=== PATIENT | female | born 1995 | race Caucasian/White ===

== ENCOUNTER 2019-08-22 09:34 | Emergency (ER) | payer OTHER, SELFPAY ==
[2019-08-22 09:43] VITALS: BP 126/79; PULSE 104; RESP 17; TEMP 37.1; O2SAT 99
--- NOTE | 2019-08-22 10:11 | ED.FEVER ---
HPI - Fever General Chief Complaint: Fever <LAYO Pierce Last Filed: 08/22/19 10:20> Stated Complaint: fever/chills <LAYO Pierce Last Filed: 08/22/19 10:20> Time Seen by Provider: 08/22/19 09:36 <Yong Haddad PA-C - Last Filed: 08/22/19 10:20> Source: patient <LAYO Pierce Last Filed: 08/22/19 10:20> Mode of arrival: ambulatory <LAYO Pierce Last Filed: 08/22/19 10:20> Limitations: no limitations <Yong Haddad PA-C - Last Filed: 08/22/19 10:20> History of Present Illness HPI Narrative: Patient is a 24-year-old female who presents with 2 days duration of upper respiratory symptoms noting fever chills body aches congestion cough denying any diarrhea noted a few episodes of emesis. Patient is taken [id number] medications with minimal improvement <LAYO Pierce Last Filed: 08/22/19 10:20> Related Data Allergies/Adverse Reactions: Allergies Allergy/AdvReac Type Severity Reaction Status Date / Time No Known Allergies Allergy Verified 08/22/19 09:49 <LAYO Pierce Last Filed: 08/22/19 10:20> Review of Systems Review of Systems: All systems reviewed & are unremarkable except as noted in HPI and below <Yong Haddad PA-C - Last Filed: 08/22/19 10:20> PMFSH Social History Social History: Social History Smoking status: Never smoker Alcohol intake: never Gender identity (if verbalized by the patient): Female <LAYO Pierce Last Filed: 08/22/19 10:20> Exam Narrative: Exam Narrative: GENERAL: Well-appearing, well-nourished, and in no acute distress. HEAD: Normocephalic, atraumatic. EYES: PERRLA and EOMI. ENT: Nares clear, no rhinorrhea or epistaxis. Mucous membranes moist. Oropharynx without tonsillar hypertrophy exudate or other lesions. NECK: Supple. No adenopathy or masses. CHEST: Clear to auscultation. No respiratory distress. No wheezes rales or rhonchi HEART: Regular rate and rhythm. No murmur heard. EXTREMITIES: Normal range of motion. No edema. SKIN: Warm, dry, no rash. NEURO: No focal deficits. Alert and oriented x3. PSYCH: Normal mood and affect. <LAYO Pierce Last Filed: 08/22/19 10:20> Course [employer]OU[employer]LIST/PA Physician Supervision Patient in the room in no distress aware of case findings treatment plan and diagnosis <Yong Haddad PA-C - Last Filed: 08/22/19 10:20> Vital Signs Vital signs: Vital Signs Temperature 37.1 C 08/22/19 09:43 Pulse Rate 104 H 08/22/19 09:43 Respiratory Rate 17 08/22/19 09:43 Blood Pressure 126/79 08/22/19 09:43 Pulse Oximetry 99 08/22/19 09:43 Temperature 37.1 C 08/22/19 09:43 Pulse Rate 100 08/22/19 10:44 Respiratory Rate 17 08/22/19 10:44 Blood Pressure 114/75 08/22/19 10:44 Pulse Oximetry 100 08/22/19 10:44 <LAYO Pierce Last Filed: 08/22/19 10:20> Vital Signs Temperature 37.1 C 08/22/19 09:43 Pulse Rate 104 H 08/22/19 09:43 Respiratory Rate 17 08/22/19 09:43 Blood Pressure 126/79 08/22/19 09:43 Pulse Oximetry 99 08/22/19 09:43 Temperature 37.1 C 08/22/19 09:43 Pulse Rate 100 08/22/19 10:44 Respiratory Rate 17 08/22/19 10:44 Blood Pressure 114/75 08/22/19 10:44 Pulse Oximetry 100 08/22/19 10:44 <Vero Rushing MD - Last Filed: 08/22/19 12:52> MDM - Fever MDM Narrative Medical decision making narrative: Patient in the room in no distress aware of case findings treatment plan and diagnosis agreeing to follow-up as directed or to return if symptoms worsen or concerns <LAYO Pierce Last Filed: 08/22/19 10:20> Lab Data Labs: Influenza A Screen Positive Reference Range: Negative Influenza B Screen Negative Reference Range: Negative <Yong Haddad PA-C - Last Filed:
[2019-08-22 10:44] VITALS: BP 114/75; PULSE 100; RESP 17; O2SAT 100
== END 2019-08-22 10:27 | disposition home or self-care (01) ==
PROVIDERS: Emergency Provider Emergency Medicine; PCP Family Medicine
DX: J10.1 Influenza due to other identified influenza virus with other respiratory manifestations (principal)
CPT/HCPCS: 87804; 99283

== ENCOUNTER 2019-09-06 14:19 | Outpatient (CLI) | payer OTHER, SELFPAY ==
--- NOTE | ~2019-09-06 | MR_ITS ---
EXAMINATION: MR ankle RT wo con DATE: 09/06/2019 15:53 INDICATION: Right ankle pain and nighttime swelling TECHNIQUE: Magnetic resonance imaging (MRI) of the right ankle was performed without intravenous cont rast. Sequences included sagittal, coronal, and axial proton-density weighted fast spin echo without and with fat saturation. COMPARISON: None. FINDINGS: Medial ankle ligaments: Deep and superficial deltoid ligaments as well as the spring ligament are normal. Lateral ankle ligaments: The anterior and posterior inferior tibiofibular ligaments are normal. The tibiofibular and posterior talofibular ligaments are normal. There is mild thickening and increased signal at the fibular side of the anterior talofibular ligament without significant surrounding edema consistent with scarring r elated to chronic sprain. Tendons: Achilles tendon is normal. The peroneus longus and brevis tendons are normal. The tibialis anterior a nd extensor hallucis longus and extensor digitorum longus tendons are normal. The tibialis posterior, flexor digitorum longus and flexor hallucis longus tendons are normal. Plantar fascia: Plantar aponeurosis is normal. Bones/other: Bone alignment is normal. No fracture or pathologic marrow replacing process. Mild partial thickness cartilage loss with anterior predominant nonuniform joint space narrowing at the ankle joint consiste nt with mild osteoarthritis. There is some chondral fissuring with mild underlying subarticular edema at the posterior aspect of the tibial plafond and. Remaining joint spaces appear relatively preserve d. No erosions to suggest an inflammatory arthritis. Fluid: Physiologic amount fluid in the joint spaces. No bursitis, tenosynovitis or other abnormal fluid nelia ections. IMPRESSION: 1. Mild tibiotalar osteoarthritis. 2. Likely mild scarring related to chronic sprain at the fibular side of the anterior talofibular lig ament. Reviewed, dictated and finalized at location A. IMPRESSION: 1. Mild tibiotalar osteoarthritis. 2. Likely mild scarring related to chronic sprain at the fibular side of the an terior talofibular ligament.
== END 2019-09-06 14:20 | disposition home or self-care (01) ==
PROVIDERS: PCP Family Medicine; Visit Provider Physician Assistant Medical
DX: M19.071 Primary osteoarthritis, right ankle and foot (principal)
CPT/HCPCS: 73721

== ENCOUNTER 2020-05-24 16:48 | Outpatient (CLI) | payer OTHER, SELFPAY ==
--- NOTE | 2020-05-24 17:11 | PC.NURSE ---
Dr. Mckeon notified of maternal assessment. Patient requests FHT doppled r/t patient can't feeling baby's heart rate. FHT doppled in 150-160 x2 mins. Patient discharged to home and to follow up in office at regular appointment.
== END 2020-05-24 17:14 | disposition home or self-care (01) ==
LOC: ANHOBOP 16:56 → ANHLDR 16:57
PROVIDERS: PCP Family Medicine; Visit Provider Obstetrics & Gynecology
DX: O36.8190 Decreased fetal movements, unspecified trimester, not applicable or unspecified (principal); Z3A.00 Weeks of gestation of pregnancy not specified
CPT/HCPCS: 99199

== ENCOUNTER 2020-07-31 16:51 | Emergency (ER) | payer OTHER, SELFPAY ==
[2020-07-31] VITALS (13 sets, daily range): BP systolic 100–117; BP diastolic 60–87; PULSE 70–110; RESP 16–18; TEMP 36.6; O2SAT 99–100
[2020-07-31 17:48] LABS: Basophils Percent Auto 0.2 % (0.2-1.2); Eosinophils Absolute Auto 0.1 K/mm3 (0-0.3); Eosinophils Percent Auto 0.4 % (0-4.4); Hematocrit 36.1 % (37.0-47.0); Hemoglobin 11.5 g/dL (12.0-15.0); Immature Granulocyte Absolute 0.08 K/mm3 (0.00-0.031); Immature Granulocyte Percent A 0.6 % (0-0.5); Lymphocytes Absolute Auto 0.53 K/mm3 (0.9-3.2); Mean Corpuscular HGB Conc 31.9 g/dl (32-36); Mean Corpuscular Hemoglobin 28.2 pg (26-34); Mean Corpuscular Volume 88.5 fl (80-100); Mean Platelet Volume 11.5 fl (7.4-10.4); Monocytes Absolute Auto 0.5 K/mm3 (0.1-0.6); Monocytes Percent Auto 3.9 % (2.6-8.5); Neutrophils Absolute Auto 12.1 K/mm3 (1.3-6.7); Neutrophils Percent Auto 90.9 % (45.5-73.1); Platelet Count Result 177 k/mm3 (150-375); Red Blood Count 4.08 M/mm3 (4.2-5.4); Red Cell Distribution Width 12.8 % (11.5-14.5); White Blood Count 13.3 K/mm3 (4.5-10.0)
[2020-07-31 17:59] LABS: Alanine Aminotransferase 14 U/L (4-35); Albumin Level 3.8 g/dL (3.5-5.1); Alkaline Phosphatase 87 U/L (38-126); Anion Gap 9 mmol/L (8-16); Aspartate Amino Transferase 27 U/L (14-36); Bilirubin,Total 0.5 mg/dL (0.2-1.3); Blood Urea Nitrogen 10 mg/dL (7-17); Calcium 8.5 mg/dL (8.4-10.2); Carbon Dioxide 20 mmol/L (22-30); Chloride 108 mmol/L (98-107); Estimated CRCL calculation 111 ml/min; Estimated Glomerular Filt Rate > 60; Glucose 82 mg/dL (65-105); Lipase 149 U/L (23-300); Potassium 3.8 mmol/L (3.4-5.0); Sodium 137 mmol/L (137-145)
[2020-07-31 18:24] LABS: Add Urine Microscopic? YES; Appearance Urine Cloudy (Clear); Bacteria Urine 2+ /hpf; Bilirubin Urine Negative (Negative); Blood Urine Negative (Negative); Color Urine Yellow (Yellow); Glucose Urine UA 1+ mg/dL (Negative); Ketones Urine 2+ mg/dL (Negative); Leukocyte Esterase Ur Negative LEU/UL (Negative); Mucus Urine Few /lpf; Nitrate Urine Negative (Negative); Protein Urine 1+ mg/dL (Negative); Specific Grav Ur 1.026 (1.001-1.035); Squamous Epithelial Cell Urine Many /hpf (Few); Urobilinogen Urine Negative mg/dL (<2.0)
[2020-07-31] MEDS: SODIUM CHLORIDE 0.9% IV 1,000 ML 999 ML IV CONT ×2 (20:18→21:46)
[2020-07-31] MEDS: ONDANSETRON INJ 4 MG/2 ML VIAL IV PUSH (20:18)
--- NOTE | 2020-07-31 20:30 | ED.NAVMDI ---
HPI - Nausea/Vomiting/Diarrhea General Chief complaint: Nausea/Vomiting/Diarrhea Stated complaint: n/v/d, 26 weeks Time Seen by Provider: 07/31/20 20:02 Source: patient Mode of arrival: ambulatory Limitations: no limitations History of Present Illness HPI Narrative: This is a 25 year old , 26 weeks , that presents to the ER for nausea and vomiting today. Reports since she ate lunch she has had several episodes of vomiting. Reports she has not been able to keep anything down. She did have one episode of diarrhea as well. Denies fever, abdominal pain, pelvic cramping or vaginal bleeding. Related Data Allergies Allergy/AdvReac Type Severity Reaction Status Date / Time No Known Allergies Allergy Verified 08/30/19 11:22 Review of Systems Review of Systems: Narrative: CONSTITUTIONAL: Denies fever GASTROINTESTINAL: Reports nausea, vomiting and diarrhea. Denies abdominal pain GENITOURINARY: Denies dysuria or hematuria. All systems reviewed & are unremarkable except as noted in HPI and below PMFSH Past Medical History Medical History (Updated 07/31/20 @ 21:53 by Shahida Lewis PA-C) No active medical problems Social History Social History Smoking status: Never smoker Alcohol intake: never Gender identity (if verbalized by the patient): Female Exam Narrative: Exam Narrative: GENERAL: Well-appearing, well-nourished, and in no acute distress. HEAD: Normocephalic, atraumatic. EYES: EOMI. ENT: Mucous membranes moist. Oropharynx without tonsillar hypertrophy exudate or other lesions. CHEST: Clear to auscultation. No respiratory distress. No wheezes rales or rhonchi HEART: Regular rate and rhythm. No murmur heard. Normal peripheral pulses. ABDOMEN: Gravid, soft, nontender, normal active bowel sounds. EXTREMITIES: Normal range of motion. No edema. SKIN: Warm, dry, no rash. NEURO: No focal deficits. Alert and oriented x3. PSYCH: Normal mood and affect Course Consultations Consultation #1: Spoke with Dr. Vega about patient and workup. Patient is to follow up in clinic at scheduled appointment. Will call for any further problems Date: 07/31/20 Time: 21:54 Vital Signs Vital signs: Vital Signs Temperature 98 F 07/31/20 17:30 Pulse Rate 98 07/31/20 17:30 Respiratory Rate 16 07/31/20 17:30 Blood Pressure 117/85 07/31/20 17:30 Pulse Oximetry 100 07/31/20 17:30 Temperature 98 F 07/31/20 17:30 Pulse Rate 70 07/31/20 20:30 Respiratory Rate 16 07/31/20 17:30 Blood Pressure 107/64 07/31/20 21:01 Pulse Oximetry 100 07/31/20 21:01 Procedures Other Procedure Procedure 1: Other Procedure: Bedside ultrasound performed with positive movement with heart rate of 144 MDM - Nausea/Vomiting/Diarrhea MDM Narrative Medical decision making narrative: Patient presents to the ER for nausea and vomiting in . Patient is 26 weeks . She is afebrile and nontoxic appearing. Vitals are stable. CBC with mild leukocytosis to 13.3. Hemoglobin is 11.5 and appears around her baseline. Metabolic panel without concerning findings. UA with some evidence of dehydration. Patient given 2 L of IV fluids while in the ED. Also with 4-6 white blood cells and 2+ bacteria, but many squamous epithelial cells. Likely a contaminated catch. This will be sent for culture. Patient is asymptomatic. I did do a bedside ultrasound which showed good movement and a heart rate of 144. Patient reports relief with IV hydration, Zofran and Tylenol. Spoke with Dr. Vega about patient and workup. Patient is to follow up in clinic at scheduled appointment. Will call for any further problems. Patient was given warnings to return to the ER Lab Data Attestation: I reviewed the patient's lab results. Result diagrams: 07/31/20 17:37 07/31/20 17:37 Labs: Lab Results 07/31/20 07/31/20 07/31/20 Rang
== END 2020-07-31 22:50 | disposition home or self-care (01) ==
PROVIDERS: Emergency Provider Emergency Medicine; PCP Family Medicine
DX: O21.9 Vomiting of pregnancy, unspecified (principal); Z3A.26 26 weeks gestation of pregnancy
CPT/HCPCS: 36415; 80053; 81001; 83690; 85025; 87086; 96361; 96365; 96375; 99284; J0131; J2405; J7030

== ENCOUNTER 2020-10-27 05:34 | Inpatient (IN) | payer OTHER, SELFPAY ==
[2020-10-27] VITALS (94 sets, daily range): BP systolic 86–134; BP diastolic 49–109; PULSE 66–145; RESP 18; TEMP 36.3–37; O2SAT 99–100; BMI 27.8
--- NOTE | 2020-10-27 06:13 | PM.IMHP ---
H&P: HPI History of Present Illness Date/Time: 10/27/20 06:13 25-year-old 2 para 1 whose last menstrual period was 01/28/2020, EDC is 11/03/2020, confirmed by 10 week ultrasound presents at 39 weeks gestation for induction of labor. She has group B strep in her urine and will be prophylaxis such. Her has otherwise been uncomplicated. Chief Complaint: medical induction of labor Review of Systems Review of Systems: All systems reviewed & are unremarkable except as noted in HPI and below PMFSH Past Medical History Medical History No active medical problems Family History Family History Other Adopted Social History Social History Smoking status: Never smoker Alcohol intake: never Substance use: never Gender identity (if verbalized by the patient): Female Spiritual care concerns: No Meds Home Medications and Allergies Home Medications Medication Instructions Recorded Confirmed Type fluticasone propionate 50 See Rx Instructions .ROUTE 06/07/20 Rx mcg/actuation nasal .COMPLEX #16 ml spray,suspension albuterol sulfate 90 mcg/actuation See Rx Instructions .ROUTE 09/18/20 Rx aerosol inhaler .COMPLEX #18 inhaler prenat.vits,viviane,[id number] 1 tablet PO HS 10/25/20 10/25/20 History [ #2] Allergies Allergy/AdvReac Type Severity Reaction Status Date / Time No Known Allergies Allergy Verified 10/25/20 15:07 Exam Const: General: no acute distress Eyes: General: appearance normal, both eyes and all related structures Neck: Neck: supple and no JVD Thyroid: thyroid normal Resp: Effort & Inspection: normal respiratory effort Auscultation: clear to auscultation bilaterally Cardio: Rate: regular rate Rhythm: regular rhythm GI: Inspection: non-distended GI Palp: Yes Soft to palpation, No Tenderness to palpation present (GI) and No Guarding due to palpation present (GI) Auscultation: normal bowel sounds Skin: General skin exam: no rashes or lesions noted Extrem: General: normal to inspection and no edema Psych: Mental Status: mental status grossly normal Affect: normal affect Assessment and Plan Additional Plan Impression: Term with positive group B strep Plans: Medical induction of labor. Group B strep prophylaxis undertaken test and delivery is expected cord she has epidural
[2020-10-27 06:51] LABS: Basophils Percent Auto 0.4 % (0.2-1.2); Eosinophils Percent Auto 0.3 % (0-4.4); Hematocrit 33.7 % (37.0-47.0); Hemoglobin 10.2 g/dL (12.0-15.0); Immature Granulocyte Absolute 0.08 K/mm3 (0.00-0.031); Lymphocytes Absolute Auto 1.18 K/mm3 (0.9-3.2); Lymphocytes Percent Auto 14.8 % (18.3-44.2); Mean Corpuscular HGB Conc 30.3 g/dl (32-36); Mean Corpuscular Hemoglobin 23.7 pg (26-34); Mean Corpuscular Volume 78.2 fl (80-100); Mean Platelet Volume 12.3 fl (7.4-10.4); Monocytes Absolute Auto 1.1 K/mm3 (0.1-0.6); Monocytes Percent Auto 13.4 % (2.6-8.5); Neutrophils Absolute Auto 5.6 K/mm3 (1.3-6.7); Neutrophils Percent Auto 70.1 % (45.5-73.1); Platelet Count Result 210 k/mm3 (150-375); Red Blood Count 4.31 M/mm3 (4.2-5.4); Red Cell Distribution Width 16.2 % (11.5-14.5)
--- NOTE | 2020-10-27 07:28 | LDADM ---
This patient, Angela Newell, was admitted to Labor/Delivery/Recovery 103 on 10/27/20 at 05:34. Plans for labor, pain management and were discussed with patient. Patient/family oriented to hospital policies and general routines including ID bracelet, bed and alarms, visiting hours, pain management, procedures, bathroom and other care routines, personal items, smoking policy, room service/diet and guest tray routines, security routines, call light, and visiting hours. Patient/Family are encouraged to report perceived risks to care and to ask questions if they do not understand what they are told or what they should do. See OBIX for further documentation.
[2020-10-27 07:41] LABS: HIV 1/2 Ab P24 Ag Result Negative (Negative)
[2020-10-27] MEDS: OXYTOCIN 30 UNITS/NS 500 ML 30 UNITS/500 ML BAG IV CONT (07:47)
[2020-10-27] MEDS: LACTATED RINGERS 1,000 ML 125 ML IV CONT ×3 (07:47→14:04)
[2020-10-27] MEDS: AMPICILLIN 2 GM/NS 100 ML 2 GM/100 ML BAG IVPB (07:47)
--- NOTE | 2020-10-27 10:52 | WPDANESEPP ---
Anes - Eval Pre Procedure Procedure: labor epidural Date/Time: 10/27/20 10:52 Surgeon: quintin greenfield Pre Op Diagnosis: IOL Patient Data Age: 25 Gender: F Height: 1.57 m Weight: 69 kg Last Vital Signs Temp 36.5 C 10/27/20 10:40 Pulse 88 10/27/20 10:46 BP 114/69 10/27/20 10:46 Allergies Allergy/AdvReac Type Severity Reaction Status Date / Time No Known Allergies Allergy Verified 10/27/20 07:09 Home Medications Medication Instructions Recorded Confirmed Type albuterol sulfate 90 mcg/actuation See Rx Instructions .ROUTE 09/18/20 10/27/20 Rx aerosol inhaler .COMPLEX #18 inhaler prenat.vits,viviane,[id number] 1 tablet PO HS 10/25/20 10/27/20 History [ #2] Laboratory Tests 10/27/20 10/27/20 10/27/20 06:24 06:24 06:24 WBC 8.0 K/mm3 K/mm3 (4.5-10.0) RBC 4.31 M/mm3 M/mm3 (4.2-5.4) Hgb 10.2 g/dL L g/dL (12.0-15.0) Hct 33.7 % L % (37.0-47.0) MCV 78.2 fl L fl (80-100) MCH 23.7 pg L pg (26-34) MCHC 30.3 g/dl L g/dl (32-36) RDW 16.2 % H % (11.5-14.5) Plt Count 210 k/mm3 k/mm3 (150-375) MPV 12.3 fl H fl (7.4-10.4) Immature Gran % (Auto) 1.0 % H % (0-0.5) Neut % (Auto) 70.1 % % (45.5-73.1) Lymph % (Auto) 14.8 % L % (18.3-44.2) [place] % (Auto) 13.4 % H % (2.6-8.5) Eos % (Auto) 0.3 % % (0-4.4) Baso % (Auto) 0.4 % % (0.2-1.2) Lymph # (Auto) 1.18 K/mm3 K/mm3 (0.9-3.2) [place] # (Auto) 1.1 K/mm3 H K/mm3 (0.1-0.6) Eos # (Auto) 0.0 K/mm3 K/mm3 (0-0.3) Baso # (Auto) 0.0 K/mm3 K/mm3 (0.0-0.1) Abs Immat Gran (auto) 0.08 K/mm3 H K/mm3 (0.00-0.031) Absolute Neuts (auto) 5.6 K/mm3 K/mm3 (1.3-6.7) Absolute Nucleated RBC 0.0 K/mm3 K/mm3 (0.0-0.012) Nucleated RBC % 0.0 % % (0.0-0.2) RPR Pending HIV 1&2 Ab/P24 Ag 4thGn Negative (Negative) Blood Type Antibody Screen 10/27/20 06:24 WBC RBC Hgb Hct MCV MCH MCHC RDW Plt Count MPV Immature Gran % (Auto) Neut % (Auto) Lymph % (Auto) [place] % (Auto) Eos % (Auto) Baso % (Auto) Lymph # (Auto) [place] # (Auto) Eos # (Auto) Baso # (Auto) Abs Immat Gran (auto) Absolute Neuts (auto) Absolute Nucleated RBC Nucleated RBC % RPR HIV 1&2 Ab/P24 Ag 4thGn Blood Type B Positive Antibody Screen Negative Patient hx anesthesia problems: none Family hx anesthesia problems: none PMFSH Past Medical History Medical History No active medical problems Family History Family History Other Adopted Social History Social History Smoking status: Never smoker Alcohol intake: never Substance use: never Gender identity (if verbalized by the patient): Female Spiritual care concerns: No Exam Day of Procedure 10/27/20 10:52
[2020-10-27] MEDS: AMPICILLIN 1 GM/NS 50 ML 1 GM/50 ML BAG IVPB (11:06)
--- NOTE | 2020-10-27 13:02 | PM.OBPNVD ---
OB - PN: Subj Subjective Date/time seen: 10/27/20 13:02 cx 4 by rn exam fhts ok epidural in OB - PN: Obj Data Labs CBC & Chem 7: 10/27/20 06:24 Labs: Laboratory Results - last 24 hr 10/27/20 10/27/20 10/27/20 06:24 06:24 06:24 WBC 8.0 RBC 4.31 Hgb 10.2 L Hct 33.7 L MCV 78.2 L MCH 23.7 L MCHC 30.3 L RDW 16.2 H Plt Count 210 MPV 12.3 H Immature Gran % (Auto) 1.0 H Neut % (Auto) 70.1 Lymph % (Auto) 14.8 L [place] % (Auto) 13.4 H Eos % (Auto) 0.3 Baso % (Auto) 0.4 Lymph # (Auto) 1.18 [place] # (Auto) 1.1 H Eos # (Auto) 0.0 Baso # (Auto) 0.0 Abs Immat Gran (auto) 0.08 H Absolute Neuts (auto) 5.6 Absolute Nucleated RBC 0.0 Nucleated RBC % 0.0 HIV 1&2 Ab/P24 Ag 4thGn Negative Blood Type B Positive Antibody Screen Negative OB - PN A/P Time Spent With Patient Time: Total time spent is greater than 50% in coordination of care (as documented) at patient's floor/unit and/or counseling patient:
--- NOTE | 2020-10-27 15:13 | PM.OBPRVD ---
OB - Delivery Note Procedure Delivery date: 10/27/20 Procedure: mil gbs prophylaxis Intrapartal events: None Induction method: AROM Delivery augmentation: pitocin Delivery monitor: external FHT Route of delivery: Episiotomy description: None Laceration Description: None Specimen: No Quantitative Blood Loss (ml): 58 Anesthesia type: Epidural Disposition: floor Narrative: amp x 2 for gbs Baby Date of : 10/27/20 Time of : 15:03 Weeks of gestation at delivery: 39 Infant gender: Female presentation: vertex position: Right Occiput Anterior Placenta delivery description: Spontaneous cord vessel description: 3 Vessels score one minute: 9 score five minutes: 9
[2020-10-27] MEDS: OXYTOCIN 30 UNITS/NS 500 ML 30 UNITS/500 ML BAG 125 UNITS IV CONT (15:33)
--- NOTE | 2020-10-27 17:45 | PC.NURSE ---
Patient transferred to post room #281 per wheelchair from labor and delivery. Support person present. Oriented to unit, room, information board, rooming in, admission packet and security measures. Patient verbalizes understanding.
[2020-10-28 03:20] VITALS: BP 118/73; PULSE 77; RESP 16; TEMP 36.4; O2SAT 100
[2020-10-28] MEDS: IBUPROFEN 600 MG TABLET PO ×3 (03:25→18:18)
[2020-10-28 05:51] LABS: Hematocrit 32.8 % (37.0-47.0); Hemoglobin 9.9 g/dL (12.0-15.0)
--- NOTE | 2020-10-28 07:20 | PM.OBPNVD ---
OB - PN: Subj Subjective Date/time seen: 10/28/20 07:20 Patient comments: no complaints and pain well controlled baby status: doing well and nursing well OB - PN: Obj Data Labs CBC & Chem 7: 10/28/20 03:22 Labs: Laboratory Results - last 24 hr 10/27/20 10/27/20 10/28/20 06:24 06:24 03:22 Hgb 9.9 L Hct 32.8 L HIV 1&2 Ab/P24 Ag 4thGn Negative Blood Type B Positive Antibody Screen Negative OB - PN A/P Plan day: 1 Plan: routine care Time Spent With Patient Time: Total time spent is greater than 50% in coordination of care (as documented) at patient's floor/unit and/or counseling patient: Time with patient: less than 15 minutes Review of Systems Review of Systems: All systems reviewed & are unremarkable except as noted in HPI and below Exam Const: General: no acute distress Eyes: General: appearance normal, both eyes and all related structures Neck: Neck: supple and no JVD Thyroid: thyroid normal Resp: Effort & Inspection: normal respiratory effort Auscultation: clear to auscultation bilaterally Cardio: Rate: regular rate Rhythm: regular rhythm GI: Inspection: non-distended GI Palp: Yes Soft to palpation, No Tenderness to palpation present (GI) and No Guarding due to palpation present (GI) Auscultation: normal bowel sounds : General: Yes bladder normal to palpation External Female Exam: normal external appearance Speculum Exam - Vagina: normal vaginal discharge and No vaginal bleeding Speculum Exam - Cervix: nontender Bimanual exam- vagina & uterus: bladder normal to palpation and No Cervical tenderness present OB/external & speculum: No vaginal bleeding Skin: General skin exam: no rashes or lesions noted Extrem: General: normal to inspection and no edema Psych: Mental Status: mental status grossly normal Affect: normal affect
[2020-10-28 09:00] VITALS: BP 110/74; PULSE 78; RESP 18; TEMP 36.4; O2SAT 96
--- NOTE | 2020-10-28 09:00 | PC.NURSE ---
PT introductions made and plan of care discussed per post , pain management, breast feeding, daily care activities. PT received instructions one to one and used mom baby care guide as a resource throughout the shift. No barriers to learning identified. Mom the only recipient of instructions.Pt verbalized understanding of such care.
[2020-10-28] MEDS: POLYSACCHARIDE IRON COMPLEX 150 MG CAPSULE PO (09:03)
[2020-10-28] MEDS: LANOLIN (LANSINOH) 7.5 GM CREAM 1 APPLIC TOPICAL (09:04)
--- NOTE | 2020-10-28 10:50 | WPDANLDPN2 ---
Anes-Prog Note L&D Date/Time: 10/28/20 10:50 Comfortable throughout: labor Neuraxial method: epidural Epidural/Spinal procedure site: clean & non-tender Neuro status: Neuro function grossly intact. Cardiovascular status: normal Respiratory status: normal Airway patency: baseline Mental status: baseline Post-Op hydration status: normal Vital Signs: Last Vital Signs Temp 36.4 C 10/28/20 03:20 Pulse 77 10/28/20 03:20 Resp 16 10/28/20 03:20 BP 118/73 10/28/20 03:20 Pulse Ox 100 10/28/20 03:20 Pain score (VAS): 0 I/O: Intake & Output 10/27/20 10/28/20 10/28/20 23:59 07:59 15:59 Intake Total 500 Balance 500 Post-procedural complaints: none Patient feedback: Patient satisfied with anesthetic care.
[2020-10-28 19:40] VITALS: BP 123/74; PULSE 83; RESP 16; TEMP 36.3
--- NOTE | 2020-10-29 06:59 | PM.DS ---
DS: Admitting Diagnosis Admitting Diagnosis Admitting Diagnosis: term iup DS: Summary Hospital Course Hospital Course: patient was admitted at term for induction of labor. She was positive for group B strep and received 2 doses of ampicillin. Her hospital course was unremarkable. She was breast feeding/ambulating/ voiding the difficulty/eating regular diet /in general without complaints. Time Spent with Patient Time attestation: Total time spent providing and/or coordinating discharge services: Exam Const: General: no acute distress Eyes: General: appearance normal, both eyes and all related structures Neck: Neck: supple and no JVD Thyroid: thyroid normal Resp: Effort & Inspection: normal respiratory effort Auscultation: clear to auscultation bilaterally Cardio: Rate: regular rate Rhythm: regular rhythm GI: Inspection: non-distended GI Palp: Yes Soft to palpation, No Tenderness to palpation present (GI) and No Guarding due to palpation present (GI) Auscultation: normal bowel sounds : General: Yes bladder normal to palpation External Female Exam: normal external appearance Speculum Exam - Vagina: normal vaginal discharge and No vaginal bleeding Speculum Exam - Cervix: nontender Bimanual exam- vagina & uterus: bladder normal to palpation and No Cervical tenderness present OB/external & speculum: No vaginal bleeding Skin: General skin exam: no rashes or lesions noted Extrem: General: normal to inspection and no edema Psych: Mental Status: mental status grossly normal Affect: normal affect Discharge Plan Discharge Attending physician on discharge: Keny Sexton Discharging Clinician: Keny Sexton Patient Disposition: Home, Self-Care Activity: may shower, no straining and pelvic rest Diet: heart healthy Discharge Instructions: Education: Mom and Baby Guide Given to: Mother Follow-Up: Call your delivering provider's office for an appointment to be seen in: 4 Weeks Mom and baby should come to the [facility] for the follow-up appointment. Appointment Date/Time: October 31, 2020 at 9:00 am What to expect at your follow-up visit: Blood Pressure Check Call [phone] if you are unable to keep your appointment time. BREAST CARE: * Wear a snug supportive bra. * For engorgement discomfort: Breast Feeding: * Apply warm moist washcloths * Express milk as needed to relieve engorgement * Wear loose clothing Bottle Feeding: * May apply ice packs * For sore nipples: * Identify correct latch-on * Apply warm moist washcloths before and after nursing * Air dry nipples after nursing * May apply Lansinoh cream to nipples PERINEAL CARE: * Until bleeding stops, use your parish bottle after urinating * Change your pad frequently throughout the day * You may take sitz baths several times a day (fill your bathtub with warm water and soak for 20 minutes.) Do NOT bathe in the water * No tub baths until seen by your physician - You may shower ACTIVITY: * Rest as much as possible. * Do not exercise or lift anything heavier than your baby (such as laundry or other children.) * Avoid stairs or driving as much as possible. * Do not put anything into the vagina. No douching, tampons, or sexual activity until seen by physician. NOTIFY PHYSICIAN IF YOU HAVE ANY QUESTIONS OR IF ANY OF THE FOLLOWING SYMPTOMS OCCUR: * If your perineum becomes red, swollen, or more painful than what you have experienced in the hospital. * If your vaginal bleeding becomes foul smelling. * If your vaginal bleeding becomes more heavy than a period or if your bleeding changes from pink to bright red. However, you may pass an occasional walnut-sized clot once or twice for the first week . * If you experience a sharp, shooting pain in you calves. * If you discover a hard, reddened area on your breast or if y
--- NOTE | 2020-10-29 07:00 | PC.NURSE ---
PT introductions made and plan of care discussed per post , pain management, breast feeding, daily care activities and pending discharge to home. PT verbalized understanding of such care. Teaching and education this shift will be done on a one to one discussion, mom baby care guide . PT the only recipient. PT seems slow and not listening well to any teaching. appears to have an answer to every recommendation. This was shared with Dr Zeng and he states that her parents are raising her children and that she is living at home with her parents. The pt has verbalized that she has no questions regarding care and understands the teaching.
--- NOTE | 2020-10-29 07:01 | PM.OBPNVD ---
OB - PN: Subj Subjective Date/time seen: 10/29/20 07:01 Patient comments: no complaints and pain well controlled baby status: doing well and nursing well OB - PN: Obj Data Labs CBC & Chem 7: 10/28/20 03:22 OB - PN A/P Plan day: 2 Plan: routine care, discharge home and follow up 6 weeks Time Spent With Patient Time: Total time spent is greater than 50% in coordination of care (as documented) at patient's floor/unit and/or counseling patient: Time with patient: less than 15 minutes Review of Systems Review of Systems: All systems reviewed & are unremarkable except as noted in HPI and below Exam Const: General: no acute distress Eyes: General: appearance normal, both eyes and all related structures Neck: Neck: supple and no JVD Thyroid: thyroid normal Resp: Effort & Inspection: normal respiratory effort Auscultation: clear to auscultation bilaterally Cardio: Rate: regular rate Rhythm: regular rhythm GI: Inspection: non-distended GI Palp: Yes Soft to palpation, No Tenderness to palpation present (GI) and No Guarding due to palpation present (GI) Auscultation: normal bowel sounds : General: Yes bladder normal to palpation External Female Exam: normal external appearance Speculum Exam - Vagina: normal vaginal discharge and No vaginal bleeding Speculum Exam - Cervix: nontender Bimanual exam- vagina & uterus: bladder normal to palpation and No Cervical tenderness present OB/external & speculum: No vaginal bleeding Skin: General skin exam: no rashes or lesions noted Extrem: General: normal to inspection and no edema Psych: Mental Status: mental status grossly normal Affect: normal affect
[2020-10-29 08:24] VITALS: BP 122/63; PULSE 69; RESP 18; TEMP 36.6; O2SAT 100
[2020-10-29] MEDS: POLYSACCHARIDE IRON COMPLEX 150 MG CAPSULE PO (08:24)
[2020-10-29] MEDS: IBUPROFEN 600 MG TABLET PO (08:24)
--- NOTE | 2020-10-29 15:00 | PC.NURSE ---
PT received discharge instructions per protocol and verbalized understanding of such care
--- NOTE | 2020-10-29 15:36 | PC.NURSE ---
PT discharged to home ambulatory accompanied by infant and taken to waiting car. Follow up appts confirmed
[2020-10-30 08:54] LABS: Rapid Plasma Reagin Reactive (NonReactive)
[2020-10-31 08:38] VITALS: BP 115/74; PULSE 88; RESP 20; TEMP 36.8; O2SAT 99
[2020-11-02 18:42] LABS: Treponema pallidum Ab FTA ABS Nonreactive (Nonreactive)
== END 2020-10-29 15:36 | disposition home or self-care (01) | DRG 560 ==
LOC: ANHLDR 05:37 → ANHOB2 18:00
PROVIDERS: Admitting Provider Obstetrics & Gynecology; PCP Family Medicine; Visit Provider Obstetrics & Gynecology
DX: O99.824 Streptococcus B carrier state complicating childbirth (principal); Z37.0 Single live birth; Z3A.39 39 weeks gestation of pregnancy; O99.52 Diseases of the respiratory system complicating childbirth; J45.909 Unspecified asthma, uncomplicated
CPT/HCPCS: 36415; 85014; 85018; 85025; 86592; 86703; 86780; 86850; 86900; 86901; A9270; G0432; J0290; J2590; J2795; J7120

== ENCOUNTER 2021-02-02 18:10 | Emergency (ER) | payer OTHER, SELFPAY ==
--- NOTE | ~2021-02-02 | XR_ITS ---
EXAMINATION: XR ankle RT min 3V DATE: 02/02/2021 18:27 INDICATION: Lateral right ankle pain post fall from curb TECHNIQUE: Anteroposterior, oblique, mortise, and lateral views of the right ankle were obtained. COMPARISON: Right ankle radiographs dated 07/16/2019 FINDINGS: Alignment is normal. No fracture. Joint spaces are well maintained. No ankle joint effusion. Mild s oft tissue swelling about the lateral malleolus. IMPRESSION: 1. No osseous abnormality. Reviewed, dictated and finalized at location A. IMPRESSION: 1. No osseous abnormality.
--- NOTE | 2021-02-02 18:14 | ED.LOWEXIN ---
HPI - Extremity Injury (Lower) General Chief Complaint: Extremity Injury, Lower Stated Complaint: rt ankle/foot injury Time Seen by Provider: 02/02/21 18:15 Source: patient and RN notes reviewed History of Present Illness HPI Narrative: Patient is a 26-year-old female who presents the urgent care with complaints of rolling the right ankle this morning. Patient states that she was standing on a curb attempting to take a picture of her new car and rolled off the curb on her right foot. 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 Patient states that she has some mild swelling and an increase in pain. States that her pain exacerbates with weightbearing or any movement. Patient has not done anything for her pain such as [id number] medication. No other acute complaints. No acute distress noted. Patient aware of the plan of care. Some parts of this dictation were generated by voice recognition software and may contain typographical and/or grammatical inaccuracies. Related Data Home Medications Medication Instructions Recorded Confirmed No Home Medications 02/02/21 02/02/21 Allergies Allergy/AdvReac Type Severity Reaction Status Date / Time No Known Allergies Allergy Verified 02/02/21 18:18 Review of Systems Review of Systems: CONSTITUTIONAL: Denies fever, chills, or sweats. EYES: Denies visual changes, redness, or discharge. ENT: Denies rhinorrhea, congestion, sore throat, or otalgia. CARDIOVASCULAR: Denies chest pain, palpitations, or edema. RESPIRATORY: Denies cough or dyspnea. GASTROINTESTINAL: Denies abdominal pain, nausea, vomiting, or diarrhea. GENITOURINARY: Denies dysuria or hematuria. SKIN: Denies rash or itching. MUSCULOSKELETAL: Reports of right ankle swelling and pain NEUROLOGIC: Denies headache, numbness, or weakness. All other systems reviewed are negative, except as documented in HPI. [facility] Past Medical History Medical History (Updated 02/02/21 @ 18:46 by MIKEY Gould) alcohol syndrome (dysmorphic) History of reactive attachment disorder No active medical problems Sprain of anterior talofibular ligament of right ankle Tension headache Unspecified intracranial injury with loss of consciousness of unspecified duration, sequela Family History Family History Other Adopted Social History Social History Smoking status: Never smoker Alcohol intake: never Substance use: never Gender identity (if verbalized by the patient): Female Spiritual care concerns: No Comments At the time of my signature, I reviewed and agree with the nursing past medical, surgical, social, and family history. There is no relevant family history pertinent to the patient complaint. Exam Narrative: GENERAL: This is a well-nourished, well-developed patient, in no apparent distress. HEAD: normocephalic, atraumatic. EYES: PERRL. Sclera clear/white. Vision is grossly intact. EARS: External ears normal NOSE: External nose normal with no obvious nasal discharge, nares without redness, no rhinorrhea. THROAT: Mucous membranes moist NECK: Neck supple CARDIOVASCULAR: Regular rate and rhythm without murmurs, gallops, or rubs. RESPIRATORY: Clear to auscultation. Breath sounds equal bilaterally. No wheezes, rales, or rhonchi. SKIN: warm, intact with no suspicious lesions or rash, good texture and turgor. NEURO: awake, alert, and oriented to person, place and time. There were no obvious focal neurologic abnormalities. EXTREMITIES: Mild edema and tenderness noted to the lateral aspect of the right malleolus. Range of motion not tested due to pain. No ecchymosis or obvious deformity noted to right lower extremity. Positive strong right pedal pulse with capillary refill less than 2 seconds. Course Vital Signs Vital signs: Vital Signs
[2021-02-02 18:20] VITALS: BP 121/74; PULSE 108; RESP 16; TEMP 37.1; O2SAT 100
--- NOTE | 2021-02-02 19:27 | PC.NURSE ---
pt has swelling noted to right ankle after falling off a curb and twisting ankle.
== END 2021-02-02 19:03 | disposition home or self-care (01) ==
PROVIDERS: Emergency Provider Nurse Practitioner Family; PCP Family Medicine
DX: S93.401A Sprain of unspecified ligament of right ankle, initial encounter (principal); S96.911A Strain of unspecified muscle and tendon at ankle and foot level, right foot, initial encounter; X50.9XXA Other and unspecified overexertion or strenuous movements or postures, initial encounter
CPT/HCPCS: 73610; 99213; G0463

== ENCOUNTER 2021-10-15 14:19 | Emergency (ER) | payer OTHER, SELFPAY ==
--- NOTE | ~2021-10-15 | XR_ITS ---
EXAMINATION: XR ankle RT min 3V INDICATION: Right ankle pain TECHNIQUE: Four views of the right ankle are obtained. COMPARISON: 03/13/2021 FINDINGS: There is soft tissue swelling of ankle. Bone alignment is normal. There is a tiny heterotop ic ossification projecting distal to the fibula and lateral to the talus. IMPRESSION: 1. Possible avulsion injury of the lateral talus or distal fibula. Reviewed, dictated and finalized at location F.
--- NOTE | 2021-10-15 14:35 | ED.LOWEXIN ---
HPI - Extremity Injury (Lower) General Chief Complaint: Extremity Injury, Lower Stated Complaint: Right ankle injury Time Seen by Provider: 10/15/21 14:35 Source: patient, RN notes reviewed and old records reviewed Mode of arrival: ambulatory Limitations: no limitations History of Present Illness HPI Narrative: 26-year-old female who presents to [facility] with complaints of injury to her right ankle which occurred yesterday when she stepped off of curb twisting her ankle and falling. Patient states pain and swelling to the lateral aspect of her right ankle with bruising noted. Patient has had previous injury to the right ankle and has seen Dr. Boyer in the past for possible ligament injury. Patient reports that she has applied ice to her ankle taken Tylenol and elevated her right foot some but did work today with increase pain with weight bearing.. Patient reports previous history of right ankle injuries. Patient does have a boot at home from previous injury to her right ankle last year. MD complaint: ankle injury (right) Onset (ago): day(s) (1) Injury: Right: ankle (lateral aspect) Place: street/outdoors Severity: severe Severity scale (1-10): 10 Relieving factors: cold therapy, rest and other (Tylenol) Exacerbating factors: weight bearing Related Data Home Medications Medication Instructions Recorded Confirmed No Home Medications 10/15/21 10/15/21 Allergies Allergy/AdvReac Type Severity Reaction Status Date / Time No Known Allergies Allergy Verified 10/15/21 14:31 Review of Systems Review of Systems: CONSTITUTIONAL: Denies fever, chills, or sweats. EYES: Denies visual changes, redness, or discharge. ENT: Denies rhinorrhea, congestion, sore throat, or otalgia. CARDIOVASCULAR: Denies chest pain, palpitations, or edema. RESPIRATORY: Denies cough or dyspnea. GASTROINTESTINAL: Denies abdominal pain, nausea, vomiting, or diarrhea. GENITOURINARY: Denies dysuria or hematuria. SKIN: Denies rash or itching. MUSCULOSKELETAL: Denies back pain, Positive for right lateral ankle joint pain, or myalgia. NEUROLOGIC: Denies headache, numbness, or weakness. PSYCHIATRIC: Denies anxiety or depression. All systems reviewed & are unremarkable except as noted in HPI and below PMFSH Past Medical History Medical History Asthma Dizziness alcohol syndrome (dysmorphic) History of reactive attachment disorder Moderate right ankle sprain No active medical problems Sprain of anterior talofibular ligament of right ankle Tension headache Tumor History of Left Leg tumor excision Unspecified intracranial injury with loss of consciousness of unspecified duration, sequela Surgical History Surgical History (Updated 03/19/21 @ 16:10 by Brandee Steven) History of cholecystectomy 2011 Family History Family History Other Adopted Social History Social History (Updated 03/19/21 @ 16:11 by Brandee Steven) Smoking status: Never smoker Alcohol intake: never Substance use: never Substance use type: does not use 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 There is no relevant family history pertinent to the presenting complaint Exam Narrative: GENERAL: Well-appearing, well-nourished, and in mild acute distress due to discomfort HEAD: Normocephalic, atraumatic. EYES: PERRLA and EOMI. ENT: Nares clear, no rhinorrhea or epistaxis. Mucous membranes moist.TM's normal with good light reflex, throat pink with no lesion or tonsil enlargement. NECK: Supple. no lymphadenopathy CHEST: Clear to auscultation. No respiratory distress.SAO2 100% on room air HEART: Regular rate and rhythm. No murmur heard. N
[2021-10-15 14:55] VITALS: BP 127/65; PULSE 82; RESP 16; TEMP 36.6; O2SAT 100
== END 2021-10-15 15:07 | disposition home or self-care (01) ==
PROVIDERS: Emergency Provider Registered Nurse; PCP Family Medicine
DX: S99.811A Other specified injuries of right ankle, initial encounter (principal); X50.9XXA Other and unspecified overexertion or strenuous movements or postures, initial encounter; S93.401A Sprain of unspecified ligament of right ankle, initial encounter
CPT/HCPCS: 73610; 99213; G0463

== ENCOUNTER → 2022-03-29 10:41 | Outpatient (CLI) | payer OTHER, SELFPAY ==
--- NOTE | ~2022-03-29 | XR_ITS ---
EXAMINATION: XR hand LT 2V DATE: 03/29/2022 11:06 INDICATION: Left hand pain. Fall. TECHNIQUE: 3 views of left hand were obtained. COMPARISON: None. FINDINGS: Bone alignment is normal. No fracture. Joint spaces are well maintained. IMPRESSION: 1. Normal left hand. Reviewed, dictated and finalized at location B. IMPRESSION: 1. Normal left hand.
== END ==
PROVIDERS: PCP Physician Assistant; Visit Provider Physician Assistant
DX: M79.642 Pain in left hand (principal)
CPT/HCPCS: 73120

== ENCOUNTER 2022-06-28 09:37 | Observation (INO) | payer OTHER, SELFPAY ==
[2022-06-28] VITALS (22 sets, daily range): BP systolic 98–105; BP diastolic 53–69; PULSE 78–105; RESP 16; TEMP 36.8–37; O2SAT 82–100; BMI 25.2
--- NOTE | 2022-06-28 10:30 | OBADM ---
This patient, Angela Newell, admitted to the OB room 116 for observation for post fall evaluation. Patient/family oriented to hospital policies and general routines including ID bracelet, bed and alarms, visiting hours, pain management, procedures, bathroom and other care routines, personal items, smoking policy, room service/diet, and visiting hours. Patient/Family are encouraged to report perceived risks to care and to ask questions if they do not understand what they are told or what they should do.
--- NOTE | 2022-06-28 12:27 | PM.OBTRLD ---
OB - Triage/Final Diagnosis Visit Information Date of evaluation: 06/28/22 Reason for evaluation: other ( fall) Comments/Additional reasons for admission: I have assessed the risk for this patient, Angela Newell, and determined that she would benefit from observation care. Evaluation Vital signs: Vital Signs - 24 hr 06/28/22 11:00 06/28/22 12:05 06/28/22 10:30 Pulse Rate 78 93 Blood Pressure 102/53 L 103/60 Oxygen Delivery Room Air
== END 2022-06-28 14:49 | disposition home or self-care (01) ==
PROVIDERS: Admitting Provider Obstetrics & Gynecology; PCP Physician Assistant; Visit Provider Obstetrics & Gynecology
DX: Z04.3 Encounter for examination and observation following other accident (principal)

== ENCOUNTER 2022-09-05 18:44 | Inpatient (IN) | payer OTHER, SELFPAY ==
[2022-09-05 19:45] VITALS: BP 103/66; PULSE 121
[2022-09-05 20:00] VITALS: BP 124/78; PULSE 96
[2022-09-05 20:06] VITALS: BMI 27.6
--- NOTE | 2022-09-05 20:07 | LDADM ---
This patient, Angela Newell, was admitted to Labor/Delivery/Recovery 106 on 09/05/22 at 18:44. Plans for labor, pain management and were discussed with patient. Patient/family oriented to hospital policies and general routines including ID bracelet, bed and alarms, visiting hours, pain management, procedures, bathroom and other care routines, personal items, smoking policy, room service/diet and guest tray routines, security routines, and visiting hours. Patient/Family are encouraged to report perceived risks to care and to ask questions if they do not understand what they are told or what they should do. See OBIX for further documentation.
[2022-09-05 20:16] LABS: Basophils Percent Auto 0.4 % (0.2-1.2); Eosinophils Absolute Auto 0.1 K/mm3 (0-0.3); Hematocrit 30.3 % (37.0-47.0); Hemoglobin 9.3 g/dL (12.0-15.0); Immature Granulocyte Absolute 0.04 K/mm3 (0.00-0.031); Immature Granulocyte Percent A 0.5 % (0-0.5); Lymphocytes Absolute Auto 1.09 K/mm3 (0.9-3.2); Lymphocytes Percent Auto 14.2 % (18.3-44.2); Mean Corpuscular HGB Conc 30.7 g/dl (32-36); Mean Corpuscular Hemoglobin 23.5 pg (26-34); Mean Corpuscular Volume 76.7 fl (80-100); Mean Platelet Volume 11.8 fl (7.4-10.4); Monocytes Percent Auto 13.1 % (2.6-8.5); Neutrophils Absolute Auto 5.4 K/mm3 (1.3-6.7); Neutrophils Percent Auto 70.8 % (45.5-73.1); Platelet Count Result 186 k/mm3 (150-375); Red Blood Count 3.95 M/mm3 (4.2-5.4); White Blood Count 7.7 K/mm3 (4.5-10.0)
[2022-09-06] VITALS (111 sets, daily range): BP systolic 87–136; BP diastolic 49–88; PULSE 65–125; RESP 16–18; TEMP 36.5–37.1; O2SAT 93–100
[2022-09-06] MEDS: AMPICILLIN 2 GM/NS 100 ML 2 GM/100 ML BAG IVPB (01:13)
[2022-09-06] MEDS: LACTATED RINGERS 1,000 ML 125 ML IV CONT ×3 (01:13→05:18)
[2022-09-06] MEDS: OXYTOCIN 30 UNITS/NS 500 ML 30 UNITS/500 ML BAG IV CONT (01:13)
--- NOTE | 2022-09-06 02:17 | WPDANESEPP ---
Anes - Eval Pre Procedure Procedure: labor epidural Date/Time: 09/06/22 02:17 Surgeon: matt Preop Diagnosis: pain during labor Pre Op Diagnosis: IOL Patient Data Age: 27 Gender: F Height: 1.57 m Weight: 68.5 kg Last Vital Signs Pulse 89 09/06/22 02:15 BP 125/77 09/06/22 02:15 O2 Del Method Room Air 09/05/22 20:06 Allergies Allergy/AdvReac Type Severity Reaction Status Date / Time No Known Allergies Allergy Verified 08/19/22 13:32 Home Medications Medication Instructions Recorded Confirmed Type prenat.vits,viviane,ind-[id number] 1 tablet PO DAILY 02/08/22 08/19/22 History Laboratory Tests 09/05/22 09/05/22 09/05/22 19:49 19:49 19:49 WBC 7.7 K/mm3 K/mm3 (4.5-10.0) RBC 3.95 M/mm3 L M/mm3 (4.2-5.4) Hgb 9.3 g/dL L g/dL (12.0-15.0) Hct 30.3 % L % (37.0-47.0) MCV 76.7 fl L fl (80-100) MCH 23.5 pg L pg (26-34) MCHC 30.7 g/dl L g/dl (32-36) RDW 17.0 % H % (11.5-14.5) Plt Count 186 k/mm3 k/mm3 (150-375) MPV 11.8 fl H fl (7.4-10.4) Immature Gran % (Auto) 0.5 % % (0-0.5) Neut % (Auto) 70.8 % % (45.5-73.1) Lymph % (Auto) 14.2 % L % (18.3-44.2) Mcdonough % (Auto) 13.1 % H % (2.6-8.5) Eos % (Auto) 1.0 % % (0-4.4) Baso % (Auto) 0.4 % % (0.2-1.2) Lymph # (Auto) 1.09 K/mm3 K/mm3 (0.9-3.2) Mcdonough # (Auto) 1.0 K/mm3 H K/mm3 (0.1-0.6) Eos # (Auto) 0.1 K/mm3 K/mm3 (0-0.3) Baso # (Auto) 0.0 K/mm3 K/mm3 (0.0-0.1) Abs Immat Gran (auto) 0.04 K/mm3 H K/mm3 (0.00-0.031) Absolute Neuts (auto) 5.4 K/mm3 K/mm3 (1.3-6.7) Absolute Nucleated RBC 0.0 K/mm3 K/mm3 (0.0-0.012) Nucleated RBC % 0.0 % % (0.0-0.2) RPR Pending Blood Type B Positive Antibody Screen Negative Patient hx anesthesia problems: none Family hx anesthesia problems: none Results Review: All pre-operative results and documents have been reviewed as part of the pre-operative evaluation. [facility] Past Medical History Medical History Asthma Dizziness alcohol syndrome (dysmorphic) High ankle sprain of right lower extremity History of reactive attachment disorder Moderate right ankle sprain No active medical problems Sprain of anterior talofibular ligament of right ankle Tension headache Tumor History of Left Leg tumor excision Unspecified intracranial injury with loss of consciousness of unspecified duration, sequela Surgical History Surgical History History of cholecystectomy 2012 Family History Family History Other Adopted Social History Social History (Updated 08/19/22 @ 13:34 by Nyla Rahman CMA) Social History: Caffeine-soda Smoking status: Never smoker Alcohol intake: never Substance use: never Substance use type: does not use Lack of Transportation: No Lack of Food: Never True Current Housing: I Have Housing Concerned About Future Housing: No Difficulty Paying Gas/Electric Bills: No Difficulty Paying for Meds: No Currently Unemployed: No Education: Associate Degree Difficulty w/ Childcare or Family Care: No Living arrangements: with family Occupation/Education: occupation 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
[2022-09-06] MEDS: AMPICILLIN 1 GM/NS 50 ML 1 GM/50 ML BAG IVPB (05:17)
--- NOTE | 2022-09-06 06:19 | PM.IMHP ---
H&P: HPI History of Present Illness Date/Time: 09/06/22 06:19 Chief Complaint: Bleeding at term Narrative: this is a 27-year-old 3 para 2 who presents at 39 weeks gestation in active labor. She had chlamydia at the beginning of the was treated with negative test to cure she is positive for group B strep she has progressed from 3cm to the room and heart tones were reassuring PMFSH Past Medical History Medical History Asthma Dizziness alcohol syndrome (dysmorphic) High ankle sprain of right lower extremity History of reactive attachment disorder Moderate right ankle sprain No active medical problems Sprain of anterior talofibular ligament of right ankle Tension headache Tumor History of Left Leg tumor excision Unspecified intracranial injury with loss of consciousness of unspecified duration, sequela Surgical History Surgical History History of cholecystectomy 2012 Family History Family History Other Adopted Social History Social History Social History: Caffeine-soda Smoking status: Never smoker Alcohol intake: never Substance use: never Substance use type: does not use Lack of Transportation: No Lack of Food: Never True Current Housing: I Have Housing Concerned About Future Housing: No Difficulty Paying Gas/Electric Bills: No Difficulty Paying for Meds: No Currently Unemployed: No Education: Associate Degree Difficulty w/ Childcare or Family Care: No Living arrangements: with family Occupation/Education: occupation 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 by the patient): Female Spiritual care concerns: No Meds Home Medications and Allergies Home Medications Medication Instructions Recorded Confirmed Type prenat.vits,viviane,[id number] 1 tablet PO DAILY 02/08/22 08/19/22 History Allergies Allergy/AdvReac Type Severity Reaction Status Date / Time No Known Allergies Allergy Verified 08/19/22 13:32 Vital Signs Vital Signs - 24 hr 09/05/22 19:45 09/05/22 20:00 09/06/22 01:13 Temperature Pulse Rate 121 H 96 85 Respiratory Rate Blood Pressure 103/66 124/78 109/65 Pulse Oximetry Oxygen Delivery 09/06/22 01:15 09/06/22 01:30 09/06/22 01:46 Temperature Pulse Rate 89 90 82 Respiratory Rate Blood Pressure 104/63 115/74 115/66 Pulse Oximetry Oxygen Delivery 09/06/22 02:15 09/06/22 02:26 09/06/22 02:27 Temperature 98.1 F Pulse Rate 89 Respiratory Rate 18 Blood Pressure 125/77 Pulse Oximetry 95 Oxygen Delivery 09/06/22 02:30 09/06/22 02:31 09/06/22 02:36 Temperature Pulse Rate 93 Respiratory Rate Blood Pressure 123/78 Pulse Oximetry 100 99 Oxygen Delivery 09/06/22 02:40 09/06/22 02:41 09/06/22 02:43 Temperature Pulse Rate 100 98 102 H Respiratory Rate Blood Pressure 120/85 120/79 94/68 L Pulse Oximetry 100 100 Oxygen Delivery 09/06/22 02:45 09/06/22 02:47 09/06/22 02:48 Temperature Pulse Rate 125 H Respiratory Rate Blood Pressure 120/55 L 121/72 Pulse Oximetry 100 Oxygen Delivery 09/06/22 02:50 09/06/22 02:52 09/06/22 02:53 Temperature Pulse Rate 104 H 99 Respiratory Rate Blood Pressure 112/52 L 89/55 L Pulse Oximetry 100 Oxygen Delivery 09/06/22 02:55 09/06/22 02:57 09/06/22 02:58 Temperature Pulse Rate 88 116 H Respiratory Rate Blood Pressure 113/64 109/64 Pulse Oximetry 100 Oxygen Delivery 09/06/22 03:00 09/06/22 03:02 09/06/22 03:03 Temperature Pulse Rate 87 109 H Respiratory Rate Blood Pressure 106/63 110/66 Pulse Oximetry 100 Oxygen Delivery 09/06/22
--- NOTE | 2022-09-06 08:38 | PM.OBPRVD ---
OB - Delivery Note Procedure Delivery date: 09/06/22 Induction method: None Delivery augmentation: Pitocin Delivery monitor: External FHT Route of delivery: Episiotomy description: None Laceration Description: None Quantitative Blood Loss (ml): 60 Anesthesia type: Epidural Disposition: Floor Baby Date of : 09/06/22 Time of : 08:31 Weeks of gestation at delivery: 39 Infant gender: Male presentation: vertex position: Right Occiput Anterior Placenta delivery description: Spontaneous Cord Vessel Description: 3 Vessels, Nuchal Cord, Loose and Delayed Cord Clamping score one minute: 8 score five minutes: 9 Narrative: amp x 2
[2022-09-06] MEDS: OXYTOCIN 30 UNITS/NS 500 ML 30 UNITS/500 ML BAG 125 UNITS IV CONT (09:04)
--- NOTE | 2022-09-06 12:40 | OBPPTRN ---
Patient transferred to post room #292 via wheelchair. Support person present. Oriented to unit, room, information board, rooming in, admission packet and security measures. Patient verbalizes understanding.
[2022-09-06] MEDS: ONDANSETRON INJ 4 MG/2 ML VIAL IV PUSH (13:05)
--- NOTE | 2022-09-06 13:20 | PC.NURSE ---
1320 - Primary RN reported mother plans to bottle and breast feed her like she did her other children and declines consult at this time.
[2022-09-06] MEDS: IBUPROFEN 600 MG TABLET PO (20:19)
[2022-09-07 00:46] VITALS: BP 116/79; PULSE 75; RESP 16; TEMP 36.6; O2SAT 99
[2022-09-07 05:33] VITALS: BP 112/76; PULSE 75; RESP 16; TEMP 36.5; O2SAT 99
[2022-09-07 06:09] LABS: Hematocrit 28.3 % (37.0-47.0); Hemoglobin 8.7 g/dL (12.0-15.0)
--- NOTE | 2022-09-07 06:36 | P.DS_ITS ---
DS: Admitting Diagnosis Discharge Date 09/07/2022 Admitting Diagnosis term /positive group B strep DS: Discharge Diagnosis Discharge Diagnosis (1) Positive testing for group B Streptococcus: Code(s): B95.1 - Streptococcus, group B, as the cause of diseases classified elsewhere Status: Acute (2) Term : Code(s): Z34.90 - Encounter for supervision of normal , unspecified, unspecified trimester Status: Acute DS: Summary Hospital Course Reason for hospitalization: patient was admitted in active labor at term she under went spontaneous va ginal delivery with group B strep prophylaxis. Hospital course was remarkable. She remained afebrile. She was up, voiding without difficulty, ambulating, eating regular diet and generally without complaints. Hospital Course: See above Time Spent with Patient Time attestation: Total time spent providing and/or coordinating discharge services: Exam Const: General: cooperative, healthy appearing and comfortable Nutritional Appearance: average body habitus Orientation/consciousness: oriented to person, oriented to place and oriented to time HENMT: Head: normal to inspection Resp: Effort & Inspection: normal respiratory effort Cardio: Rate: regular rate Rhythm: regular rhythm Heart sounds: S1 normal heart sound present and S2 normal heart sound present GI: Inspection: normal to inspection ( fundus firm below the umbilicus) DS: Data Data Completed and Pending Labs on day of discharge: Labs from last 24 hours 09/07/22 05:45 Hgb Pending Hct Pending Discharge Plan Discharge Attending physician on discharge: Keny Garza Discharging Clinician: Keny Garza Patient Disposition: Home, Self-Care Activity: may shower, no straining and pelvic rest Diet: heart healthy Wound Care Instructions: follow printed instructions Patient Instructions: Antibiotic Form Stand Alone Forms: General Discharge Information Follow-up/Referrals: Keny Garza MD [Physician] - Discharge Medications: Continued prenat.vits,viviane,[id number] Tablet 1 tablet PO DAILY Date of admission: 09/05/22 18:44 Primary Care Provider: Lupe Zeng Admitting Provider: Keny Garza Attending physician on admission: Keny Garza Condition: Stable
--- NOTE | 2022-09-07 06:40 | PM.OBPNVD ---
OB - PN: Subj Subjective Date/time seen: 09/07/22 06:40 Patient comments: no complaints and pain well controlled baby status: doing well and nursing well OB - PN: Obj Data Labs 09/05/22 19:49 OB - PN A/P Plan day: 1 Plan: routine care, discharge home and follow up 6 weeks Time Spent With Patient Time: Total time spent is greater than 50% in coordination of care (as documented) at patient's floor/unit and/or counseling patient: Time with patient: less than 15 minutes Exam Const: General: cooperative, healthy appearing and comfortable Nutritional Appearance: average body habitus Orientation/consciousness: oriented to person, oriented to place and oriented to time HENMT: Head: normal to inspection Resp: Effort & Inspection: normal respiratory effort Cardio: Rate: regular rate Rhythm: regular rhythm Heart sounds: S1 normal heart sound present and S2 normal heart sound present GI: Inspection: normal to inspection
--- NOTE | 2022-09-07 08:01 | WPDANLDPN2 ---
Anes-Prog Note L&D Date/Time: 09/07/22 08:01 Comfortable throughout: labor and delivery Neuraxial method: epidural Epidural/Spinal procedure site: clean & non-tender Neuro status: Neuro function grossly intact. Cardiovascular status: normal Respiratory status: normal Airway patency: baseline Mental status: baseline Post-Op hydration status: normal Vital Signs: Last Vital Signs Temp 36.5 C 09/07/22 05:33 Pulse 75 09/07/22 05:33 Resp 16 09/07/22 05:33 BP 112/76 09/07/22 05:33 Pulse Ox 99 09/07/22 05:33 O2 Del Method Room Air 09/06/22 21:00 Pain score (VAS): 07/02 Post-procedural complaints: none Patient feedback: Patient satisfied with anesthetic care.
[2022-09-07 09:25] VITALS: BP 114/76; PULSE 73; RESP 18; TEMP 36.5
--- NOTE | 2022-09-07 09:38 | PC.NURSE ---
Pt states she will take her own gummy and iron supplements at home.
[2022-09-07 13:21] LABS: Rapid Plasma Reagin Non-Reactive (NonReactive)
[2022-09-09 14:03] VITALS: BP 119/75; PULSE 106; RESP 20; TEMP 36.7; O2SAT 99
== END 2022-09-07 13:17 | disposition home or self-care (01) | DRG 560 ==
LOC: ANHLDR 09-06 09:43 → ANHOB2 09-06 12:40
PROVIDERS: Admitting Provider Obstetrics & Gynecology; PCP Family Medicine; Visit Provider Obstetrics & Gynecology
DX: O99.824 Streptococcus B carrier state complicating childbirth (principal); O69.81X0 Labor and delivery complicated by cord around neck, without compression, not applicable or unspecified; Z3A.39 39 weeks gestation of pregnancy; Z37.0 Single live birth
CPT/HCPCS: 36415; 85014; 85018; 85025; 86592; 86850; 86900; 86901; A9270; J0290; J2405; J2590; J2795; J7120

== ENCOUNTER 2023-10-31 12:56 | Emergency (ER) | payer OTHER, SELFPAY ==
--- NOTE | 2023-10-31 12:59 | ED.URI ---
HPI - URI/Sore Throat General Chief Complaint: Upper Respiratory Infection Stated Complaint: SINUS CONGESTION/EARACHE/CLOGGED FEELING Time Seen by Provider: 10/31/23 12:59 Source: patient Mode of arrival: ambulatory Limitations: no limitations History of Present Illness HPI Narrative: Angela is a 28-year-old female patient presenting to the clinic today with complaints of nasal congestion, cough, and, right earache. URI symptoms have been going on for 4 days. States last night she was not able to hear very well in her right ear so she used a Q-tip to try to clean it out and noticed some blood on the Q-tip. States that the pain worsened after she used a Q-tip and is concerned that she may have rupture eardrum or cause some type of trauma. Denies any fever, chills, or body aches. Related Data Allergies Allergy/AdvReac Type Severity Reaction Status Date / Time No Known Allergies Allergy Verified 10/31/23 13:05 Review of Systems Review of Systems: Pertinent positives per HPI. Patient denies any fever, chills, rash, headache, visual changes, dizziness, sore throat, shortness of breath, chest pain, palpitations, nausea, vomiting, diarrhea, constipation, abdominal pain, or any urinary issues. [facility] Past Medical History Medical History Asthma Dizziness alcohol syndrome (dysmorphic) High ankle sprain of right lower extremity History of reactive attachment disorder Moderate right ankle sprain No active medical problems Sprain of anterior talofibular ligament of right ankle Tension headache Tumor History of Left Leg tumor excision Unspecified intracranial injury with loss of consciousness of unspecified duration, sequela Surgical History Surgical History History of cholecystectomy 2012 Family History Family History Other Adopted Social History Social History Social History: Caffeine-soda Smoking status: Never smoker Alcohol intake: never Substance use: never Substance use type: does not use Lack of Transportation: No Lack of Food: Never True Current Housing: I Have Housing Concerned About Future Housing: No Difficulty Paying Gas/Electric Bills: No Difficulty Paying for Meds: No Currently Unemployed: No Education: Associate Degree Difficulty w/ Childcare or Family Care: No Living arrangements: with family Occupation/Education: occupation Additional occupation/education comments: Retail at [employer] Gender identity (if verbalized by the patient): Female Spiritual care concerns: No Comments At the time of my signature, I reviewed and agree with the nursing past medical, surgical, social, and family history. There is no relevant family history pertinent to the patient complaint. Exam Narrative: General: Well-developed, well nourished, in no apparent distress Head: Normocephalic, atraumatic Eyes: Pupils equally round and reactive to light bilaterally, EOM intact, sclera and conjunctive clear, no discharge, lids normal Ears: Left TMs intact and clear, right TM intact, mild bulging, with fluid noted behind the TM, tenderness to palpation over the right eustachian tube, ear canals ceruminous, no drainage, grossly hearing normal. Nose: Nares patent, clear nasal discharge, mild inflammation, no sinus tenderness. Mouth: Oropharynx without lesions or masses, good dentition, MMM. Neck: Supple, trachea midline, no enlargement of anterior or posterior cervical nodes, no thyroid masses or goiter palpable. Cardio: Regular rate and rhythm, s1 and s2 normal, no murmur appreciated. Resp: Clear to auscultation bilaterally anteriorly and posteriorly, no rhonchi, rales, wheezing or rubs Course Course Emergency Course: Portions of this rec
[2023-10-31 13:07] VITALS: BP 102/68; PULSE 85; RESP 16; TEMP 37.1; O2SAT 100
== END 2023-10-31 13:24 | disposition home or self-care (01) ==
PROVIDERS: Emergency Provider Nurse Practitioner Family; PCP Family Medicine
DX: H69.81 Other specified disorders of Eustachian tube, right ear (principal); H92.01 Otalgia, right ear; J06.9 Acute upper respiratory infection, unspecified; H65.01 Acute serous otitis media, right ear; J45.909 Unspecified asthma, uncomplicated
CPT/HCPCS: 99213; G0463

== ENCOUNTER 2024-02-02 15:22 | Outpatient (CLI) | payer OTHER, SELFPAY ==
--- NOTE | ~2024-02-02 | XR_ITS ---
XR shoulder LT min 2V Ordering provider: Kevin Simon APRN History: . M25.512 - Pain in left shoulder . Comparison: None. FINDINGS: BONES: No acute fracture or dislocation. JOINT SPACES: The acromioclavicular joint is normal. The glenohumeral joint is normal. SOFT TISSUES: Normal. IMPRESSION: No acute osseous abnormality left shoulder. Reviewed, dictated and finalized at location A.
== END 2024-02-02 15:23 | disposition home or self-care (01) ==
LOC: ANHIMG 15:25
PROVIDERS: PCP Family Medicine; Visit Provider Student in an Organized Health Care Education/Training Program
DX: M25.512 Pain in left shoulder (principal)
CPT/HCPCS: 73030